=== PATIENT | male | born 1985 ===

== ENCOUNTER 2024-04-08 21:25 | Emergency (ER) | payer OTHER ==
[~2024-04-08] VITALS: Ht 170.2 cm; Wt 63.5 kg
[2024-04-08] MEDS ORDERED: Cephalexin Monohydrate 500 MG Cap PO ONE (23:05)
[2024-04-08] MEDS ORDERED: CEPH500 PO (23:05)
[2024-04-08] MEDS ORDERED: Trimethoprim/Sulfamethoxazole DS Tab PO ONE (23:05)
[2024-04-08] MEDS ORDERED: BACTRIM DS TAB1 EAC1 PO (23:05)
== END 2024-04-08 23:11 | disposition home or self-care (01) ==
LOC: ER 21:25
DX: H66.92 Otitis media, unspecified, left ear (principal); L98.9 Disorder of the skin and subcutaneous tissue, unspecified; B95.8 Unspecified staphylococcus as the cause of diseases classified elsewhere
CPT/HCPCS: 99282; A9270